=== PATIENT | male | born 2000 | race African-American/Black ===

== ENCOUNTER 2024-08-01 10:28 | Emergency (ER) | payer OTHER ==
[~2024-08-01] VITALS: Ht 180.3 cm; Wt 73.7 kg
[2024-08-01] MEDS ORDERED: [UNRECOGNIZED DRUG - CODE] PO (10:45)
[2024-08-01] MEDS: ONDANSETRON 4MG 2ML VIAL IV ONE (11:59)
[2024-08-01] MEDS: NS (Normal Saline) 0.9% 1,000 ML IV ONE (11:59)
[2024-08-01 12:02] LABS: BASO % 0.1 % (0.0-1.0); EOS % 0.4 % (0.0-3.0); HEMATOCRIT 44.6 % (42.0-52.0); HEMOGLOBIN 15.2 g/dl (13.5-17.5); LYMPH # 0.7 10^3/uL (1.5-5.0); LYMPH % 9.4 % (24.0-44.0); MEAN CORPUSCULAR HEMOGLOBIN 30.3 pg (27.0-33.0); MEAN CORPUSCULAR HGB CONC 34.1 g/dl (32.0-36.5); MEAN CORPUSCULAR VOLUME 88.8 fl (80.0-96.0); MONO # 0.2 10^3/uL (0.0-0.8); MONO % 3.5 % (2.0-8.0); NEUTROPHILS % 86.3 % (36.0-66.0); PLATELET COUNT, AUTOMATED 200 10^3/uL (150-450); RED BLOOD COUNT 5.02 10^6/uL (4.30-6.10); WHITE BLOOD COUNT 6.9 10^3/uL (4.0-10.0)
[2024-08-01 12:34] LABS: BLOOD UREA NITROGEN 16 MG/DL (9-23); CALCIUM LEVEL 9.1 MG/DL (8.5-10.1); CARBON DIOXIDE LEVEL 25 MMOL/L (20-31); CHLORIDE LEVEL 103 MMOL/L (98-107); CREATININE FOR GFR 0.97 MG/DL (0.70-1.30); GLOMERULAR FILTRATION RATE > 60.0 (>60); GLUCOSE, FASTING 92 MG/DL (60-100); SODIUM LEVEL 137 MMOL/L (136-145)
[2024-08-01 13:33] LABS: KETONE, URINE AUTO RFX TRACE mg/dL (NEGATIVE); LEUKOCYTE ESTERASE UR AUTO RFX NEGATIVE (NEGATIVE); MUCUS, URINE RFX LARGE (NEGATIVE); NITRITE, URINE AUTO RFX NEGATIVE (NEGATIVE); RBC, URINE AUTO RFX 12 /HPF (0-3); SQUAM EPITHELIAL CELL UR AURFX 0 /HPF (0-6); WBC, URINE AUTO RFX 0 /HPF (0-3)
[2024-08-01] MEDS: ACETAMINOPHEN 325 MG TAB PO ONE (13:38)
[2024-08-01 13:40] VITALS: TEMP 99.4
[2024-08-01] MEDS ORDERED: ONDA-282 PO (14:04)
[2024-08-01 14:14] VITALS: BP 134/70; O2SAT 99
== END 2024-08-01 14:15 | disposition home or self-care (01) ==
LOC: M ED 10:28
DX: A08.39 Other viral enteritis (principal); Z79.1 Long term (current) use of non-steroidal anti-inflammatories (NSAID); Z79.899 Other long term (current) drug therapy
CPT/HCPCS: 80048; 81001; 85025; 87486; 87581; 87633; 87798; 96361; 96374; 99283; J2405